=== PATIENT | male | born 1990 | race Caucasian/White ===

== ENCOUNTER 2023-01-05 05:54 | Emergency (ER) | payer OTHER, SELFPAY ==
[2023-01-05 05:55] VITALS: BP 122/87; BP 123/86; PULSE 76; PULSE 81; RESP 16; TEMP 36.7; O2SAT 97; BMI 25.8
[2023-01-05] MEDS: Erythromycin Base 1 OPTH.TUBE 1 APPLIC OPHTHALMIC (06:53)
--- NOTE | 2023-01-05 08:05 | EDS_ITS ---
HPI History of Present Illness Chief Complaint: Eye Problem Narrative Narrative: 32-year-old male presenting with right eye pain. He states he incidentally moved a pineapple plant yesterday and grazed both of his eyes the right more than the left. He states the left eye does not hurt, but when he opens his left eye it makes his right eye hurt. He is unable to to open his right eye due to pain especially in the light. He did not notice any bleeding. Initially he did not have this much pain. He complains that his eye is tearing and his vision is at baseline he believes except for all the tearing PFSH PFSH Home Medications erythromycin 5 mg/gram (0.5 %) eye ointment 1 applic RIGHT EYE DAILY #3.5 grams 01/05/23 [Rx Last Taken Unknown] fluoxetine 20 mg capsule 40 mg PO DAILY 01/05/23 [History Last Taken Unknown] Allergy/AdvReac Type Severity Reaction Status Date / Time No Known Allergies Allergy Verified 01/05/23 05:58 Social History Smoking Status: Current every day smoker tobacco type: cigarettes ROS ROS ED Constitutional Constitutional ED: Denies chills, fever(s) or sweats Eyes Eyes: Reports other Details: Right eye pain ; Denies blurry vision or change in vision ENT ENT ED: Denies ear pain or sore throat Cardiovascular Cardiovascular: Denies chest pain, palpitations or racing heartbeat Respiratory/Chest Respiratory/Chest: Denies cough, dyspnea or sputum Gastrointestinal Gastrointestinal: Denies abdominal pain, constipation, diarrhea, nausea or vomiting Genitourinary Genitourinary ED: Denies dysuria, hematuria or urinary frequency Musculoskeletal Musculoskeletal: Denies arthralgias, myalgias or neck pain Integumentary Denies abscess, Abrasions or rash Neurologic Neurologic: Denies headache(s), paresthesias or weakness Psychiatric Psychiatric: Denies anxiety, depression, suicidal ideation or suicidal thoughts Endocrine Endocrinology: Denies polydipsia or polyuria EXAM Physical Exam Const Vital Signs: 01/05/23 05:55 01/05/23 05:55 Temperature 98.1 F 98.1 F Temperature Source Oral Oral Pulse Rate 76 81 Respiratory Rate 16 16 Blood Pressure 123/86 H 122/87 H Blood Pressure Mean 98 98 Pulse Ox 97 97 Oxygen Delivery Method Room Air Room Air Positive well nourished General Appearance ED: NAD HEENT atraumatic Eyes PERRL Visual Acuity: acuity normal Alignment: alignment normal Periorbital: periorbital findings normal Eyelid: eyelids normal Conjunctiva: conjunctiva normal Sclera: sclera abnormal Positive for right Details: scleral injection Cornea: cornea normal and fluorescein used Neck no lymphadenopathy Resp normal respiratory effort Cardio regular rate and regular rhythm Neuro oriented x3 and CN's II-XII intact bilaterally Skin Lesions: no lesions Rashes: no rashes MDM MDM MDM Narrative Medical decision making narrative: Patient presenting with right eye pain he states it hurts worse when his left eye is open suggesting that he has a traumatic iritis. I had a lot of diffic ulty trying to examine the patient's eye. Patient is having trouble opening it. He did assist him by pulling down his lower eyelid and I pulled up on his upper eyelid however once his eyes open he rolled his eye backwards and I can examine his pupil/cornea. The sclera seems injected. I do not see any obvious scratches and I did use fluorescein and tetracaine. Given this I spoke with Dr. Vasquez who stated that he could see him in 8:00 and to have him call the office and he will be discharged home to go over that way. Impression: 1. Traumatic iritis Discharge Plan Triage Chief Complaint: Eye Problem ED Provider: Tera Webster Dx/Rx/DC Orders Instructions: ED Corneal Abrasion, ED Iritis Prescriptions: New erythromycin 5 mg/gram (0.5 %) ointment 1 applic RIGHT EYE DAILY Qty: 3.5 0RF No Action fluoxetine 20 mg capsule 40 mg PO DAILY Stand Alone Forms: ED Work / School Excuse Primary Care Provider: Care Physician,No Primary Referrals: Yordy Vasquez MD [Med Staff - Active Staff] - As soon as possible Care Physician,No Primary [Primary Care Provider] - Disposition Disposition: Home, Self Care Discharge Date/Time: 01/05/23 07:25
== END 2023-01-05 07:25 | disposition home or self-care (01) ==
PROVIDERS: Emergency Provider Student in an Organized Health Care Education/Training Program; Visit Provider Student in an Organized Health Care Education/Training Program
DX: H57.11 Ocular pain, right eye (principal); F17.210 Nicotine dependence, cigarettes, uncomplicated; H20.9 Unspecified iridocyclitis
CPT/HCPCS: 99282

== ENCOUNTER 2023-11-04 16:45 | Emergency (ER) | payer MEDICAID, SELFPAY ==
[2023-11-04 16:46] VITALS: BP 113/84; PULSE 97; RESP 16; TEMP 36.4; O2SAT 96; BMI 26.7
--- NOTE | 2023-11-04 17:05 | ED.VIS.GI ---
HPI HPI - GI History of Present Illness Chief Complaint: Abd Pain Informant: patient Narrative Narrative: Patient has been having lower abdominal pain for the last month or so. He has not for the most part is started sort of intermittent. It has been associated with nausea and dry heaving, he has not really been vomiting. Normal bowel movements, he states occasionally they are a little loose but it really seems to depend on what he eats for the most part no watery diarrhea, no bright red blood per rectum or melena. No problems urinating. Pain does not radiate into his back sometimes goes up to his epigastrium only. It is nonlateralizing. No history of any surgeries or GI problems in the past, he comes to the ER for this now because he does not have a PCP. [facility] Medical History (Updated 11/04/23 @ 19:[address] Sohan Dan MD) Depression Medical History no medical history no medical history Home Medications ?Medication ?Instructions ?Recorded ?Last Taken ?Type fluoxetine 20 mg capsule 40 mg PO DAILY 01/05/23 Unknown History dicyclomine 10 mg capsule 20 mg (2 x 10 mg) PO Q6H PRN PRN 11/04/23 Unknown Rx abdominal discomfort #20 CAPSULES famotidine 20 mg tablet 20 mg PO BID #28 TABLETS 11/04/23 Unknown Rx ondansetron 8 mg disintegrating 8 mg PO Q8H PRN nausea and 11/04/23 Unknown Rx tablet vomiting #15 tabs Allergy/AdvReac Type Severity Reaction Status Date / Time No Known Allergies Allergy Verified 11/04/23 16:46 Surgical History no surgical history no surgical history Social History Smoking Status: Current every day smoker tobacco type: cigarettes ROS ROS ED Constitutional Constitutional ED: Denies chills or fever(s) Eyes Eyes: Denies change in vision or diplopia ENT ENT ED: Denies rhinorrhea or sore throat Cardiovascular Cardiovascular: Denies chest pain or palpitations Respiratory/Chest Respiratory/Chest: Denies cough or dyspnea Gastrointestinal Gastrointestinal: Reports abdominal pain, nausea and vomiting; Denies diarrhea or melena Genitourinary Genitourinary ED: Denies dysuria or hematuria Musculoskeletal Musculoskeletal: Denies back pain or neck pain Integumentary Denies abscess or rash Neurologic Neurologic: Denies headache(s), paresthesias or weakness Psychiatric Psychiatric: Denies anxiety or suicidal thoughts EXAM Physical Exam Const Vital Signs: 11/04/23 16:46 11/04/23 18:46 Temperature 97.6 F L Temperature Source Temporal Pulse Rate 97 66 Respiratory Rate 16 16 Blood Pressure 113/84 H 115/75 Blood Pressure Mean 93 88 Pulse Ox 96 100 Oxygen Delivery Method Room Air Positive well nourished and well developed General Appearance ED: well developed and NAD HEENT Reports moist mucous membranes normocephalic and atraumatic Eyes PERRL and EOMs intact bilaterally Neck full ROM and supple Resp normal respiratory effort and clear to auscultation bilaterally Cardio regular rate, regular rhythm and no murmurs GI non-distended GI Narrative: Mild diffuse lower abdominal tenderness, with some mild subjective rebound. No upper abdominal tenderness. No distention normal bowel sounds present. Auscultation: normoactive bowel sounds Palpation: soft Back/Spine no CVA tenderness General Back: other FROM Extremity normal to inspection General Extremety ED: Negative for edema, pulses abnormal or tenderness General Extremity: Negative for edema or pulses abnormal Neuro oriented x3, CN's II-XII intact bilaterally and no sensory deficits noted Sensorium / Orientation: awake and alert Motor Exam: strength 5/5 throughout Skin no rashes or lesions noted and no wounds MDM MDM MDM Narrative Medical decision making narrative: Patient having lower abdominal pain not resolving after bowel movements, he has been there for a month, no obvious triggers or modifying factors, labs show leukocytosis but otherwise are normal. Therefore I thought contrasted CT abdomen/pelvis warranted to rule out acute infectious etiology such as diverticulitis. This was obtained I reviewed the images and report which I agree with, it was normal/negative. It did show contracted gallbladder no stones, he is not having pain or tenderness there. For that reason going to send him home on dicyclomine, Zofran, and Pepcid, and give him a PCP referral, the next doctor on the unassigned list Dr. Armendariz, and advised that he follow-up. This may be a functional GI etiology of some sort as I discussed with him. Lab Data Attestation: I reviewed the patient's lab results. Labs: Laboratory Results - last 24 hr 11/04/23 17:04 WBC 16.4 H RBC 4.80 Hgb 14.4 Hct 41.9 MCV 87.3 MCH 30.0 MCHC 34.4 RDW Std Deviation 41.5 RDW Coeff of Lynda 12.9 Plt Count 303 MPV 8.9 Immature Gran % (Auto) 0.300 Neut % (Auto) 72.1 H Lymph % (Auto) 19.2 [place] % (Auto) 4.9 Eos % (Auto) 3.0 Baso % (Auto) 0.5 Absolute Neuts (auto) 11.8 H Absolute Lymphs (auto) 3.15 Nucleated RBC % 0 Sodium 139 Potassium 3.8 Chloride 109 H Carbon Dioxide 26.0 Anion Gap 4 L BUN 11 Creatinine 1.07 Estim Creat Clear Calc 104.58 Est GFR (MDRD) Af Amer 102 Est GFR (MDRD) Non-Af 84 BUN/Creatinine Ratio 10.3 Glucose 116 H Calcium 9.2 Total Bilirubin 0.30 AST 23 ALT 41 Alkaline Phosphatase 88 Total Protein 7.3 Albumin 3.8 Globulin 3.5 Albumin/Globulin Ratio 1.1 Lipase 40 Urine Color Yellow Urine Clarity Clear Urine pH 5.0 Ur Specific [place] 1.025 Urine Protein 30 H Urine Glucose (UA) Normal Urine Ketones 5 H Urine Occult Blood 10 H Urine Nitrite Negative Urine Bilirubin 1 H Urine Urobilinogen Normal Ur Leukocyte Esterase 25 H Urine RBC 0 SEEN Urine WBC 0-5 SEEN Ur Squamous Epith Cells 0-5 SEEN Urine Bacteria 0 SEEN Urine Mucus 1+ Radiography Diagnostic Testing: Clinical Impression(s) from Imaging Studies Abdomen/Pelvis CT 11/04/23 17:41 IMPRESSION: Contracted thick-walled gallbladder without calcified stones likely physiologic although if concern for gallbladder disease ultrasound recommended. No evidence for small bowel obstruction or other acute abnormality. Electronically Signed: Brian Cohn MD at 18:43 EDT , Discharge Plan Triage Chief Complaint: Abd Pain ED Provider: Sohan Dan Dx/Rx/DC Orders Clinical Impression: Lower abdominal pain Instructions: Abdominal Pain Prescriptions: New famotidine 20 mg tablet 20 mg PO BID Qty: 28 0RF dicyclomine 10 mg capsule 20 mg PO Q6H PRN PRN (Reason: abdominal discomfort) Qty: 20 0RF ondansetron 8 mg tablet,disintegrating 8 mg PO Q8H PRN (Reason: nausea and vomiting) Qty: 15 0RF No Action fluoxetine 20 mg capsule 40 mg PO DAILY Primary Care Provider: Care Physician,No Primary Referrals: Tessa Kapoor MD [Med Staff - Imaging Technician] - As soon as possible (call for appt) Care Physician,No Primary [Primary Care Provider] - Print Language: Albanian Disposition Disposition: Home, Self Care
[2023-11-04] MEDS: Ondansetron 4 MG/2 ML Vial IV (17:07)
[2023-11-04] MEDS: Ketorolac 30 MG/ML Syringe IV (17:07)
[2023-11-04 17:10] LABS: Bacteria 0 SEEN /hpf (None Seen); Red Blood Cells-Urine 0 SEEN /hpf (0-5)
[2023-11-04 17:20] LABS: Absolute Lymphocyte Count 3.15 X10^3/uL (0.83-4.51); Absolute Neutrophil Count 11.8 X10^3/uL (2.0-7.7); Basophil# 0.08 X10^3/uL; Basophil% 0.5 % (0-1); Hematocrit 41.9 % (40-54); Hemoglobin 14.4 g/dL (13.0-16.5); Lymphocyte # 3.15 X10^3/ul (0.83-4.51); Lymphocyte % 19.2 % (19-41); Mean Corp Hgb Conc 34.4 g/dL (32-36); Mean Corpuscular Volume 87.3 fL (80-94); Mean Platelet Vol. 8.9 fl (6.2-12.0); Monocyte# 0.81 X10^3/uL; Monocyte% 4.9 % (0-10); NRBC Flagged by Analyzer 0 % (0-5); Neutrophil # 11.84 X10^3/uL (2.7-7.7); Neutrophil % 72.1 % (47-70); Platelet Count 303 K/mm3 (150-450); RBC Distribution Width CV 12.9 % (11.6-14.6); RBC Distribution Width SD 41.5 fl (35.1-43.9); White Blood Count 16.4 K/mm3 (4.4-11.0)
[2023-11-04 17:23] LABS: Color, Urine Yellow (Yellow); Glucose, Dipstick Normal (Normal); Ketone-Dipstick 5 mg/dl (Negative); Leukocyte Esterase-Dipstick 25 /ul (Negative); Nitrite-Dipstick Negative (Negative); Occult Blood-Urine 10 /ul (Negative); Protein-Dipstick 30 mg/dl (Negative); Specific Gravity, Urine 1.025 (1.002-1.030); Urine Clarity Clear (Clear); Urine Urobilinogen Normal (Normal)
[2023-11-04 17:31] LABS: Urine Bilirubin Dipstick 1 mg/dL (Negative)
[2023-11-04 17:33] LABS: Mucous, Urine 1+ /hpf (<or=2+); Squamous Epithelial Cells - UA 0-5 SEEN /hpf (0-5); White Blood Cells 0-5 SEEN /hpf (0-5)
[2023-11-04 17:36] LABS: ALB/GLOB Ratio 1.1 RATIO (0.9-2.4); AST(SGOT) 23 U/L (15-37); Alanine Aminotransfer ALT/SGPT 41 U/L (16-61); Albumin, Serum 3.8 g/dL (3.2-5.0); Alkaline Phosphatase 88 U/L (45-117); Anion Gap 4 (5-15); BUN 11 mg/dL (7-18); BUN/Creat Ratio 10.3 RATIO (10-20); Calcium,Total 9.2 mg/dL (8.5-10.1); Chloride 109 mmol/L (98-107); Creatinine, Serum 1.07 mg/dL (0.70-1.30); EST Glomerular Filtration Rate 84 mL/min (>60); Est Glom Filt Rate - Afr Amer 102 mL/min (>60); Estimated Creatinine Clearance 104.58 ml/min; Globulin 3.5 g/dL (2.2-4.2); Glucose 116 mg/dL (74-106); Lipase 40 U/L (13-75); Potassium 3.8 mmol/L (3.5-5.1); Protein, Total 7.3 g/dL (6.4-8.2); Sodium Level 139 mmol/L (136-145)
--- NOTE | 2023-11-04 17:41 | CT_ITS ---
STUDY: CT ABDOMEN AND PELVIS WITH CONTRAST REASON FOR EXAM: Male, 33 years old. lower abd pain, n/v RADIATION DOSAGE (If Supplied By Facility): CTDIvol = ( 19.24 ) mGy, DLP = ( 1090.94 ) mGycm TECHNIQUE: Transaxial images were obtained from the dome of the diaphragm to the symphysis pubis without oral contrast. IV 100mL Isovue-300 was administered. Sagittal and coronal images were reconstructed. Individualized dose optimization techniques were used for this CT. COMPARISON: None. FINDINGS: Mild atelectasis within the dependent portion of the lower lobes.. The visualized portions of the heart are within normal limits. Normal liver. Contracted thick-walled gallbladder without calcified stones likely physiologic.. Normal spleen. Normal pancreas. Normal bilateral adrenal glands. Normal right kidney. Normal left kidney. Normal visualized stomach. Normal small intestine. Normal colon. No evidence for acute appendicitis. Normal abdominal aorta. Normal inferior vena cava. Normal retroperitoneum. Incompletely distended thick walled bladder likely of no significance. Tiny subcentimeter right inguinal nodes likely benign. Normal osseous structures. CT/Abdomen/Pelvis W IV Cont ONLY IMPRESSION: Contracted thick-walled gallbladder without calcified stones likely physiologic although if concern for gallbladder disease ultrasound recommended. No evidence for small bowel obstruction or other acute abnormality. Electronically Signed: Brian Cohn MD at 18:43 EDT ,
[2023-11-04 18:46] VITALS: BP 115/75; PULSE 66; RESP 16; O2SAT 100
[2023-11-04 19:23] VITALS: BP 106/79; PULSE 70; RESP 18; TEMP 37.2; O2SAT 94
== END 2023-11-04 19:26 | disposition home or self-care (01) ==
PROVIDERS: Emergency Provider Emergency Medicine; Visit Provider Emergency Medicine
DX: R10.30 Lower abdominal pain, unspecified (principal); F17.210 Nicotine dependence, cigarettes, uncomplicated
CPT/HCPCS: 74177; 80053; 81001; 83690; 85025; 96374; 96375; 99283; Q9967; A4216; J2405

== ENCOUNTER 2023-12-29 15:49 | Emergency (ER) | payer MEDICAID, SELFPAY ==
[2023-12-29 15:50] VITALS: BP 104/90; PULSE 95; RESP 16; TEMP 35.7; O2SAT 96; BMI 26.2
--- NOTE | 2023-12-29 21:30 | RAD_ITS ---
INDICATION: wrist pain with redness no injury EXAMINATION/TECHNIQUE: X-RAY - RIGHT XR Wrist Min 3 Views COMPARISON: None. FINDINGS: No acute fracture or malalignment. No blastic or lytic lesions. No degenerative changes are seen. The soft tissues are unremarkable. RAD/Wrist min 3 Views IMPRESSION: No acute radiographic abnormalities. Electronically Signed: Jamin Rea MD at 21:41 EDT ,
[2023-12-29] MEDS: 0.9% Normal Saline (1000mL) 1,000 ML 999 ML IV (21:39)
[2023-12-29 21:43] VITALS: BP 95/76; PULSE 78; RESP 16; TEMP 37.1; O2SAT 96
[2023-12-29 21:54] LABS: Absolute Lymphocyte Count 3.09 X10^3/uL (0.83-4.51); Absolute Neutrophil Count 9.5 X10^3/uL (2.0-7.7); Basophil# 0.08 X10^3/uL; Basophil% 0.6 % (0-1); Eosinophil# 0.35 X10^3/uL; Eosinophils% 2.5 % (0-5); Hematocrit 39.4 % (40-54); Lymphocyte # 3.09 X10^3/ul (0.83-4.51); Lymphocyte % 22.4 % (19-41); Mean Corpuscular Hgb 29.3 pg (27.0-32.0); Mean Corpuscular Volume 88.9 fL (80-94); Monocyte# 0.77 X10^3/uL; Monocyte% 5.6 % (0-10); NRBC Flagged by Analyzer 0 % (0-5); Neutrophil # 9.47 X10^3/uL (2.7-7.7); Neutrophil % 68.5 % (47-70); Platelet Count 272 K/mm3 (150-450); RBC Distribution Width CV 12.8 % (11.6-14.6); RBC Distribution Width SD 41.8 fl (35.1-43.9); Red Blood Count 4.43 M/mm3 (4.6-6.2); White Blood Count 13.8 K/mm3 (4.4-11.0)
--- NOTE | 2023-12-29 21:59 | EDS_ITS ---
HPI History of Present Illness Chief Complaint: Wound Check Narrative Narrative: Patient is a 33-year-old male with no known significant past medical history who [facility] the [facility] with a chief complaint of right wrist pain and swelling and redness. Patient states that yesterday he noted that he developed some pain and redness in his right wrist and noted that his significant other felt like the redness was getting worse and streaking up his arm prompting him to come here for further evaluation management. Patient denies any injuries he states that he does have 2 marked on his wrist but does not recall what those are from. Patient denies any history of drug use, states he does smoke and will use alcohol occasionally. Patient denies any fevers. He states that if he attempts to move his wrist radial or ulnarly the pain does increase significantly. [facility] Medical History (Updated 12/29/23 @ 23:[address] Berhane Sahu DO) Right arm cellulitis Depression Home Medications ?Medication ?Instructions ?Recorded ?Last Taken ?Type fluoxetine 20 mg capsule 40 mg PO QHS 01/05/23 Unknown History cephalexin 500 mg capsule 500 mg PO BID 7 days #14 caps 12/29/23 Unknown Rx sulfamethoxazole 800 1 tab PO BID 7 days #14 tabs 12/29/23 Unknown Rx mg-trimethoprim 160 mg tablet (Bactrim DS) Allergy/AdvReac Type Severity Reaction Status Date / Time Iodinated Contrast Media (CT) Allergy Intermediate Swelling Verified 12/29/23 15:50 Social History Smoking Status: Current every day smoker tobacco type: cigarettes ROS ROS ED ROS Narrative Constitutional: Denies any fevers, chills, headaches, lightness, dizziness Cardiovascular: Denies chest pain or palpitations Respiratory: Denies shortness of breath Abdomen: Denies nausea vomit diarrhea : Denies any urinary symptoms Neurological: Denies numbness, weakness, tingling Musculoskeletal: Complains of right wrist pain as noted above Skin: Complains of redness of his right wrist as noted above EXAM Physical Exam Narrative Exam Narrative: General: Patient was lying in bed rest comfortably did not appear to be in acute distress Head: Atraumatic, normocephalic Eyes: PERRL bilateral, EOMI bilateral, no conjunctival injection noted Neck: Soft, supple, trachea midline Cardiovascular: Regular rate and rhythm no murmurs gallops rubs noted Respiratory: Clear to auscultation bilaterally Musculoskeletal: Patient has some pain with flexion of his wrist however extension does not reproduce the pain. Patient does have pain with ulnar and radial deviation, Extremities: Radial pulses +2/4 in the bilateral upper extremities, +5/5 strength noted in the bilateral per extremities, patient was able to give me okay sign thumbs up and oppose his thumb to his pinky bilaterally thigh difficulty Neurological: Patient following commands knew that he was at [facility] year is 2023. Sensation grossly intact in the median ulnar and radial nerve distributions Skin: Patient does have overlying erythema noted to the volar aspect of his right wrist with streaking up his right arm Const Vital Signs: 12/29/23 15:50 12/29/23 21:43 12/29/23 23:00 Temperature 96.3 F L 98.8 F 98.7 F Temperature Source Temporal Oral Oral Pulse Rate 95 78 97 Respiratory Rate 16 16 18 Blood Pressure 104/90 H 95/76 115/87 H Blood Pressure Mean 94 82 96 Pulse Ox 96 96 95 Oxygen Delivery Method Room Air Room Air Room Air MDM MDM MDM Narrative Medical decision making narrative: Patient is a 33-year-old male who presented to the emergency department with a chief complaint of right wrist pain redness and swelling. Patient will have workup formed here on the differential diagnose includes but not limited to cellulitis, septic joint, musculoskeletal strain. Once workup is obtained reviewed he will be reevaluated. Patient's CBC was significant for leukocytosis of 13,000, hemoglobin stable 13, platelet count normal at 272. Patient sodium normal 139, potassium was 3.4, creatinine was normal at 1.02. Patient's ESR was normal at 8, CRP was elevated 36.8 this is nonspecific likely related elevation secondary to cellulitis. Patient's x-ray of his wrist reviewed showed no acute radiographic abnormalities this was reviewed by myself and by radiology. On reevaluation the patient and the patient's redness is localized to the volar aspect of his right wrist with some redness going up his forearm. Patient does have range of motion of his wrist with some mild pain but he is still able to move his wrist. At this point time to have low to suspicion for septic joint. Called and discussed the case with orthopedic surgeon Dr. saavedra who states that the patient can follow-up with him in the outpatient setting with close follow-up. He was given a gram of Rocephin here in the emergency department was given a prescription for Keflex and Bactrim. He was advised to take this as prescribed. He is advised to have close follow-up and return with worsening swelling pain redness while on oral antibiotics or any other concerns. He is agreeable this plan he would like to go home at this point time will be discharged in stable condition. Lab Data Labs: Laboratory Results - last 24 hr 12/29/23 21:38 WBC 13.8 H RBC 4.43 L Hgb 13.0 Hct 39.4 L MCV 88.9 MCH 29.3 MCHC 33.0 RDW Std Deviation 41.8 RDW Coeff of Lynda 12.8 Plt Count 272 MPV 9.0 Immature Gran % (Auto) 0.400 Neut % (Auto) 68.5 Lymph % (Auto) 22.4 [place] % (Auto) 5.6 Eos % (Auto) 2.5 Baso % (Auto) 0.6 Absolute Neuts (auto) 9.5 H Absolute Lymphs (auto) 3.09 Nucleated RBC % 0 ESR 8 Sodium 139 Potassium 3.4 L Chloride 110 H Carbon Dioxide 27.0 Anion Gap 2 L BUN 15 Creatinine 1.02 Estim Creat Clear Calc 109.71 Est GFR (MDRD) Af Amer 108 Est GFR (MDRD) Non-Af 89 BUN/Creatinine Ratio 14.7 Glucose 98 Lactic Acid 0.6 Calcium 9.1 C-React Prot Ext Range 36.80 H Radiography Diagnostic Testing: Clinical Impression(s) from Imaging Studies Wrist X-Ray 12/29/23 21:30 IMPRESSION: No acute radiographic abnormalities. Electronically Signed: Jamin Rea MD at 21:41 EDT , Discharge Plan Triage Chief Complaint: Wound Check ED Provider: Berhane Sahu Dx/Rx/DC Orders Clinical Impression: Right arm cellulitis Prescriptions: New cephalexin 500 mg capsule 500 mg PO BID 7 Days Qty: 14 0RF sulfamethoxazole-trimethoprim [Bactrim DS] 800-160 mg tablet 1 tab PO BID 7 Days Qty: 14 0RF No Action fluoxetine 20 mg capsule 40 mg PO QHS Primary Care Provider: Care Physician,No Primary Referrals: Care Physician,No Primary [Primary Care Provider] - Jamin Garnt MD [Med Staff - Refrigeration Plant Cork Insulator] - Yordy Saavedra MD [Med Staff - Active Staff] - Activity Restrictions/Additional Instructions: Follow-up with the orthopedic surgeon that you referred to. Take antibiotics as prescribed. Return with worsening pain, redness while on antibiotics, fevers, any other concerns as we discussed here. You will need close follow-up with the orthopedic surgeon call his office tomorrow for an appointment. He referred to primary care physician as well follow-up with them. Print Language: Sudanese Disposition Disposition: Home, Self Care
[2023-12-29 22:02] LABS: Erythrocyte Sedimentation Rate 8 mm/hr (0-20)
[2023-12-29 22:08] LABS: Anion Gap 2 (5-15); BUN 15 mg/dL (7-18); BUN/Creat Ratio 14.7 RATIO (10-20); Calcium,Total 9.1 mg/dL (8.5-10.1); Chloride 110 mmol/L (98-107); Creatinine, Serum 1.02 mg/dL (0.70-1.30); EST Glomerular Filtration Rate 89 mL/min (>60); Est Glom Filt Rate - Afr Amer 108 mL/min (>60); Estimated Creatinine Clearance 109.71 ml/min; Glucose 98 mg/dL (74-106); Potassium 3.4 mmol/L (3.5-5.1); Sodium Level 139 mmol/L (136-145)
[2023-12-29 22:28] LABS: Lactic Acid 0.6 mmol/L (0.4-1.9)
--- NOTE | 2023-12-29 22:55 | CONS.ORTHO ---
HPI Consult Data Date of Consult: 12/29/23 HPI Narrative HPI Narrative: LINDA OKEEFE, is a 33 M who presents for right wrist and forearm redness and pain. Called by the ED provider this evening at around 1050pm. Per his hx, one day of redness and warmth. no iv drug use. no fevers, drainage, trauma or other symptoms. no concern for septic joint, compartment syndrome, or need for urgent assessment. wanting to arrrange outpatient FU after arranging for a dose of IV antibiotics and oral abx to go home with. [facility] Medical History (Updated 12/29/23 @ 22:57 by Yordy Carroll MD) Right arm cellulitis Depression Home Medications ?Medication ?Instructions ?Recorded ?Last Taken ?Type fluoxetine 20 mg capsule 40 mg PO QHS 01/05/23 Unknown History Allergy/AdvReac Type Severity Reaction Status Date / Time Iodinated Contrast Media (CT) Allergy Intermediate Swelling Verified 12/29/23 15:50 Social History Smoking Status: Current every day smoker tobacco type: cigarettes Vital Signs Vital Signs Vital Signs: 12/29/23 15:50 12/29/23 21:43 Temperature 96.3 F L 98.8 F Temperature Source Temporal Oral Pulse Rate 95 78 Respiratory Rate 16 16 Blood Pressure 104/90 H 95/76 Blood Pressure Mean 94 82 Pulse Ox 96 96 Oxygen Delivery Method Room Air Room Air Weight Weight: 188 lb Body Mass Index (BMI) 26.2 Physical Exam Narrative per the ED provider, full Rom of the wrist with only mild pain and NVI, with some mild streaking redness. Lab / Micro Data 12/29/23 21:38 12/29/23 21:38 Labs: Laboratory Results - last 24 hr 12/29/23 21:38: WBC 13.8 H, RBC 4.43 L, Hgb 13.0, Hct 39.4 L, MCV 88.9, MCH 29.3, MCHC 33.0, RDW Std Deviation 41.8, RDW Coeff of Lynda 12.8, Plt Count 272, MPV 9.0, Immature Gran % (Auto) 0.400, Neut % (Auto) 68.5, Lymph % (Auto) 22.4, [place] % (Auto) 5.6, Eos % (Auto) 2.5, Baso % (Auto) 0.6, Absolute Neuts (auto) 9.5 H, Absolute Lymphs (auto) 3.09, Nucleated RBC % 0, ESR 8, Sodium 139, Potassium 3.4 L, Chloride 110 H, Carbon Dioxide 27.0, Anion Gap 2 L, BUN 15, Creatinine 1.02, Estim Creat Clear Calc 109.71, Est GFR (MDRD) Af Amer 108, Est GFR (MDRD) Non-Af 89, BUN/Creatinine Ratio 14.7, Glucose 98, Lactic Acid 0.6, Calcium 9.1, C-React Prot Ext Range 36.80 H Imaging Radiology Impression Wrist X-Ray 12/29/23 21:30 IMPRESSION: No acute radiographic abnormalities. Electronically Signed: Jamin Rea MD at 21:41 EDT , Assessment & Plan Assessment/Plan (1) Right arm cellulitis: PLAN: 33 yr M with stable vitals and early signs of cellulitis with no features necessitating surgical intervention. OK to arrange for outpatient antibiotics and FU early in clinic this week. Patient should be advised by the ED provider to return immediately for any significant change or failure to improve, worsening, pain, etc.
[2023-12-29 23:00] VITALS: BP 115/87; PULSE 97; RESP 18; TEMP 37.1; O2SAT 95
[2023-12-29] MEDS: Ceftriaxone 1 GM/50 ML BAG IV (23:23)
[2023-12-29 23:39] VITALS: BP 125/73; PULSE 74; RESP 18; TEMP 36.9; O2SAT 96
== END 2023-12-29 23:56 | disposition home or self-care (01) ==
PROVIDERS: Emergency Provider Emergency Medicine; Visit Provider Emergency Medicine
DX: L03.113 Cellulitis of right upper limb (principal); F32.A Depression, unspecified; F17.210 Nicotine dependence, cigarettes, uncomplicated; Z79.899 Other long term (current) drug therapy
CPT/HCPCS: 73110; 80048; 83605; 85025; 85652; 86140; 96361; 96365; 99284; J7030; J7050; A4216

== ENCOUNTER 2024-04-15 07:51 | Inpatient (IN) | payer MEDICAID, SELFPAY ==
[2024-04-15] VITALS (13 sets, daily range): BP systolic 77–120; BP diastolic 42–72; PULSE 98–123; RESP 15–24; TEMP 36.9–39.3; O2SAT 89–97; BMI 27.6; BMI 27.7
--- NOTE | 2024-04-15 08:04 | EX.ED.DYSGE1 ---
HPI History of Present Illness Chief Complaint: Fever Informant: patient and spouse/S.O. Onset/Context/Timing Onset: Days Context: Gradual Onset Timing: Continuous Current Severity: Mild Maximum Severity: Mild Narrative Narrative: 33-year-old male history of depression. States that a fever for 4 to 5 days. Symptoms began Thursday night. He and his said the whole house has been ill but they have all gotten over it and he just does not seem to be able to shake the fever. He had loose stools on Thursday is since resolved. No dysuria. No abdominal pain. Mild nausea. No vomiting. No rash. No earache or sore throat. No significant cough. He does feel dehydrated. But has been able to drink and hold down fluids. He took Advil at 6 AM this morning. Prior similar symptoms: No Recent Illness/Hospitalization: No PFSH PFSH Medical History Right arm cellulitis Depression Home Medications ?Medication ?Instructions ?Recorded ?Last Taken ?Type fluoxetine 20 mg capsule 40 mg PO QHS 01/05/23 Unknown History Allergy/AdvReac Type Severity Reaction Status Date / Time Iodinated Contrast Media (CT) Allergy Intermediate Swelling Verified 04/15/24 07:52 Social History Smoking Status: Current every day smoker tobacco type: cigarettes ROS ROS ED ROS Narrative Fever. Nausea. Diarrhea resolved. Constitutional Constitutional ED: Reports fever(s) ENT ENT ED: Denies ear pain, rhinorrhea or sore throat Cardiovascular Cardiovascular: Denies chest pain Respiratory/Chest Respiratory/Chest: Denies cough or dyspnea Gastrointestinal Gastrointestinal: Reports diarrhea and nausea; Denies abdominal pain, constipation, melena or vomiting Genitourinary Genitourinary ED: Denies dysuria Musculoskeletal Musculoskeletal: Denies arthralgias Integumentary Denies abscess Neurologic Neurologic: Denies headache(s) Psychiatric Psychiatric: Denies anxiety Endocrine Endocrinology: Denies cold intolerance Hematologic/Lymphatic Hematologic/Lymphatic: Reports none Allergic/Immunologic Allergic/Immunologic ED: Denies mouth swelling, tongue swelling or urticaria EXAM Physical Exam Narrative Exam Narrative: 33-year-old male vital signs show low-grade temperature nine 9.7. Pulse 123 and hypotensive at 96/62. Pulse ox 97%. Clinically looks well. He sitting upright in bed. He does not look septic or toxic. He looks mildly dehydrated. H EENT exam pupils round react light. Mildly dry mucous membranes. Posterior pharynx unremarkable. Neck nontender. No lymphadenopathy. Neck is nontender. No lymphadenopathy. Trachea midline. No meningismus. Able to touch chin to chest. Back nontender no rash. Lungs clear to auscultation bilaterally. Heart tachycardic rate about 120 no murmur. Chest wall and ribs nontender. No rash. Abdomen soft nontender. No rash. Moving all 4 extremities. Nontender. No edema. No rashes. No hot or swollen joints. Normal range of motion. Normal strength. Neurologically is awake and alert. No focal motor deficits. Answering questions and following commands. Const Vital Signs: 04/15/24 07:52 04/15/24 07:52 04/15/24 08:08 Temperature 99.7 F H 99.8 F H 102.2 F H Temperature Source Oral Temporal Oral Pulse Rate 123 H Respiratory Rate 20 H Respiratory Effort Respiratory Pattern Blood Pressure 96/62 Blood Pressure Mean 73 Pulse Ox 97 Oxygen Delivery Method Room Air 04/15/24 08:25 04/15/24 10:26 04/15/24 10:34 Temperature 98.5 F Temperature Source Oral Pulse Rate 108 H 108 H Respiratory Rate 19 H 20 H Respiratory Effort Normal Non-Labored Respiratory Pattern Normal Blood Pressure 77/42 L 84/47 L Blood Pressure Mean 53 59 Pulse Ox 92 93 Oxygen Delivery Method Room Air Room Air 04/15/24 10:51 04/15/24 12:06 04/15/24 13:27 Temperature 98.9 F Temperature Source Pulse Rate 101 H 98 98 Respiratory Rate 16 15 16 Respiratory Effort Respiratory Pattern Blood Pressure 99/62 96/72 92/54 L Blood Pressure Mean 74 80 66 Pulse Ox 90 96 95 Oxygen Delivery Method Room Air Room Air Positive well nourished and well developed; Negative for obese, cachectic, contractures or unkempt General Appearance ED: well developed and NAD; Negative for unkempt, cachectic, contractures, cyanotic, diaphoretic or pallor Nutritional Appearance: Negative for cachectic or obese HEENT Reports TM's clear and dry mucous membranes; Denies moist mucous membranes Negative for trauma or tenderness Tympanic Membrane ED: Yes TM's clear Mouth ED: Yes dry mucous membranes Mouth: dry mucous membranes Eyes PERRL and EOMs intact bilaterally General Eye ED: Negative for pale conjunctiva or scleral icterus Neck no lymphadenopathy, supple and no JVD General: Negative for tenderness Lymph Lymphatic: Negative for other Chest Wall inspection of chest normal and palpation of chest normal Resp normal respiratory effort and clear to auscultation bilaterally Effort and Inspection: Negative for retractions Auscultation: Negative for rales, rhonchi, wheezes or diminished lung sounds Cardio regular rhythm, S1 normal heart sound and S2 normal heart sound; Negative for regular rate Rate: tachycardic Rhythm: Negative for abnormal rhythm GI normal to inspection, nondistended, normoactive bowel sounds, non-tender, non-distended and no masses Inspection: Negative for abdominal distention Auscultation: normoactive bowel sounds Palpation: soft; Negative for tender or guarding Back/Spine no CVA tenderness General Back: Negative for CVA tenderness Cervical Spine: Negative for cervical spine tenderness Thoracic Spine / Upper Back: Negative for thoracic spinal tenderness or paraspinal muscle tenderness Lumbar Spine / Lower Back: Negative for lumbar spinal tenderness Extremity normal to inspection General Extremety ED: Negative for edema or tenderness General Extremity: Negative for edema Neuro oriented x3 and CN's II-XII intact bilaterally Sensorium / Orientation: alert; Negative for orientation impaired, lethargic or stuporous Motor Exam: strength 5/5 throughout; Negative for general weakness or strength abnormal Psych mental status grossly normal Appearance: Negative for unkempt Attitude: No agitated Mood & Affect: Negative for depressed, anxious or tearful Skin no rashes or lesions noted and no wounds General Skin Exam: Negative for jaundice or pallor Lesions: No lesion noted Rashes: No rashes noted Trauma: Negative for abrasion Wounds: Negative for wounds noted MDM MDM MDM Narrative Medical decision making narrative: 33-year-old male with fever clinically appears dehydrated and mildly hypotensive. We treated with IV fluids. He already took Advil about 2 hours ago. Screening labs will be obtained looking for different infections. Viral versus bacterial. On exam he has no obvious signs of any bacterial infection. Repeat exam at 10:58 AM patient doing well. His pressure is about 98/56. He has a second liter bag hanging the nurse to go check the IV because it does not seem to be running. The first liter went in quickly. I went over labs of both he and family. We are going get a CAT scan of his chest to rule out pneumonia the chest x-ray I do not make much of the radiologist thinks there may be patchy infiltrates consistent with pneumonia. Repeat exam at 1:08 PM. Patient's blood pressure is holding in the 90s. His tachycardia has resolved. He received IV fluids. The CAT scan does show signs of pneumonia so he has both influenza and a pneumonia. He will be treated with additional IV fluids, Rocephin and Zithromax for the pneumonia. At the hospitalist on page. I am ordering blood cultures prior to the antibiotics. History & Record Review Discussion w/independent historian: Patient Additional record(s) reviewed:: Prior inpatient record, Prior outpatient record, Prior ED visit and Prior labs Lab Data Attestation: I reviewed the patient's lab results. Lab results narrative: CBC shows a white count of 7.9. H&H 13 and 38. Platelets 198. Electrolytes show sodium 137 gap 6. Normal BUN of 10 creatinine of 1. Glucose 102. Lactic acid slightly elevated 2.2. Liver enzymes are normal. UA is negative. Chest x-ray possible pneumonia. Labs: Laboratory Results - last 24 hr 04/15/24 04/15/24 04/15/24 08:15 08:36 10:05 WBC 7.9 RBC 4.39 L Hgb 13.0 Hct 38.5 L MCV 87.7 MCH 29.6 MCHC 33.8 RDW Std Deviation 42.1 RDW Coeff of Lynda 13.1 Plt Count 198 MPV 8.8 Immature Gran % (Auto) 0.500 Neut % (Auto) 81.7 H Lymph % (Auto) 8.4 L [place] % (Auto) 7.0 Eos % (Auto) 2.0 Baso % (Auto) 0.4 Absolute Neuts (auto) 6.4 Absolute Lymphs (auto) 0.66 L Nucleated RBC % 0 Sodium 137 Potassium 3.7 Chloride 105 Carbon Dioxide 26.0 Anion Gap 6 BUN 10 Creatinine 1.07 Estim Creat Clear Calc 104.58 Est GFR (MDRD) Af Amer 102 Est GFR (MDRD) Non-Af 84 BUN/Creatinine Ratio 9.3 L Glucose 102 Lactic Acid 2.2 H* Calcium 8.6 Total Bilirubin 0.20 AST 39 H ALT 45 Alkaline Phosphatase 82 Total Protein 6.5 Albumin 3.4 Globulin 3.1 Albumin/Globulin Ratio 1.1 Urine Color Yellow Urine Clarity Clear Urine pH 8.0 Ur Specific [place] 1.010 Urine Protein 15 H Urine Glucose (UA) Normal Urine Ketones Negative Urine Occult Blood Negative Urine Nitrite Negative Urine Bilirubin Negative Urine Urobilinogen Normal Ur Leukocyte Esterase 25 H Urine RBC 0-5 SEEN Urine WBC 0-5 SEEN Ur Squamous Epith Cells 0 SEEN Urine Bacteria 0 SEEN Urine Mucus 0 SEEN 04/15/24 12:50 WBC RBC Hgb Hct MCV MCH MCHC RDW Std Deviation RDW Coeff of Lynda Plt Count MPV Immature Gran % (Auto) Neut % (Auto) Lymph % (Auto) [place] % (Auto) Eos % (Auto) Baso % (Auto) Absolute Neuts (auto) Absolute Lymphs (auto) Nucleated RBC % Sodium Potassium Chloride Carbon Dioxide Anion Gap BUN Creatinine Estim Creat Clear Calc Est GFR (MDRD) Af Amer Est GFR (MDRD) Non-Af BUN/Creatinine Ratio Glucose Lactic Acid 1.5 Calcium Total Bilirubin AST ALT Alkaline Phosphatase Total Protein Albumin Globulin Albumin/Globulin Ratio Urine Color Urine Clarity Urine pH Ur Specific [place] Urine Protein Urine Glucose (UA) Urine Ketones Urine Occult Blood Urine Nitrite Urine Bilirubin Urine Urobilinogen Ur Leukocyte Esterase Urine RBC Urine WBC Ur Squamous Epith Cells Urine Bacteria Urine Mucus Radiography Chest X-Ray - ED: 2 View, Read by ED Physician, Read by Radiologist, Heart, Lungs, Mediastinum, Bony Structures, No Acute Disease and Chronic Changes Diagnostic Testing: Clinical Impression(s) from Imaging Studies Chest X-Ray 04/15/24 08:20 IMPRESSION: Findings suggestive of patchy bibasilar infiltrates. Electronically Signed: Roshan Portillo MD at 8:43 EST , Chest CT 04/15/24 11:20 IMPRESSION: Patchy bibasilar infiltrates worse on the left side. Electronically Signed: Roshan Portillo MD at 12:14 EST , Chest x-ray, 2 views, AP and lateral interpreted by myself and the radiologist. Normal cardiac silhouette and questionable patchy infiltrates. COVID and RSV negative. Influenza A positive. Discharge Plan Dx/Rx/DC Orders Clinical Impression: Influenza A, Pneumonia, Acute hypotension, Acute dehydration Disposition Disposition: Acute Care Hospital [facility]
--- NOTE | 2024-04-15 08:20 | RAD_ITS ---
STUDY: X-RAY CHEST REASON FOR EXAM: Male, 33 years old. Fever. Body aches. TECHNIQUE: PA and lateral views of the chest. COMPARISON: None. FINDINGS: Increased markings are seen in both lung bases suggestive of patchy bibasilar infiltrates. There is no demonstrated pleural abnormality. Normal size heart. Normal mediastinum and mandie. Normal visualized pulmonary arteries. Normal visualized aortic arch and descending thoracic aorta. Normal visualized thoracic spine. Normal visualized ribs, clavicles, and shoulders. There is no demonstrated abnormality of the visualized soft tissue structures of the upper abdomen. RAD/Chest PA and Lateral IMPRESSION: Findings suggestive of patchy bibasilar infiltrates. Electronically Signed: Roshan Portillo MD at 8:43 EST ,
[2024-04-15 08:28] LABS: Absolute Lymphocyte Count 0.66 X10^3/uL (0.83-4.51); Absolute Neutrophil Count 6.4 X10^3/uL (2.0-7.7); Basophil# 0.03 X10^3/uL; Basophil% 0.4 % (0-1); Eosinophil# 0.16 X10^3/uL; Hematocrit 38.5 % (40-54); Lymphocyte # 0.66 X10^3/ul (0.83-4.51); Lymphocyte % 8.4 % (19-41); Mean Corp Hgb Conc 33.8 g/dL (32-36); Mean Corpuscular Hgb 29.6 pg (27.0-32.0); Mean Corpuscular Volume 87.7 fL (80-94); Mean Platelet Vol. 8.8 fl (6.2-12.0); Monocyte# 0.55 X10^3/uL; NRBC Flagged by Analyzer 0 % (0-5); Neutrophil # 6.44 X10^3/uL (2.7-7.7); Neutrophil % 81.7 % (47-70); Platelet Count 198 K/mm3 (150-450); RBC Distribution Width CV 13.1 % (11.6-14.6); RBC Distribution Width SD 42.1 fl (35.1-43.9); Red Blood Count 4.39 M/mm3 (4.6-6.2); White Blood Count 7.9 K/mm3 (4.4-11.0)
[2024-04-15] MEDS: 0.9% Normal Saline (1000mL) 1,000 ML 1000 ML IV (08:35)
[2024-04-15 08:42] LABS: ALB/GLOB Ratio 1.1 RATIO (0.9-2.4); AST(SGOT) 39 U/L (15-37); Alanine Aminotransfer ALT/SGPT 45 U/L (16-61); Albumin, Serum 3.4 g/dL (3.2-5.0); Alkaline Phosphatase 82 U/L (45-117); Anion Gap 6 (5-15); BUN 10 mg/dL (7-18); BUN/Creat Ratio 9.3 RATIO (10-20); Calcium,Total 8.6 mg/dL (8.5-10.1); Chloride 105 mmol/L (98-107); Creatinine, Serum 1.07 mg/dL (0.70-1.30); EST Glomerular Filtration Rate 84 mL/min (>60); Est Glom Filt Rate - Afr Amer 102 mL/min (>60); Estimated Creatinine Clearance 104.58 ml/min; Globulin 3.1 g/dL (2.2-4.2); Glucose 102 mg/dL (74-106); Potassium 3.7 mmol/L (3.5-5.1); Protein, Total 6.5 g/dL (6.4-8.2); Sodium Level 137 mmol/L (136-145)
[2024-04-15] MEDS: Acetaminophen 500 MG Tablet 1000 MG PO (08:57)
[2024-04-15 09:10] LABS: Lactic Acid 2.2 mmol/L (0.4-1.9)
[2024-04-15 10:13] LABS: Bacteria 0 SEEN /hpf (None Seen); Mucous, Urine 0 SEEN /hpf (<or=2+); Squamous Epithelial Cells - UA 0 SEEN /hpf (0-5)
[2024-04-15 10:17] LABS: Color, Urine Yellow (Yellow); Glucose, Dipstick Normal (Normal); Ketone-Dipstick Negative (Negative); Leukocyte Esterase-Dipstick 25 /ul (Negative); Nitrite-Dipstick Negative (Negative); Occult Blood-Urine Negative /ul (Negative); Protein-Dipstick 15 mg/dl (Negative); Urine Bilirubin Dipstick Negative (Negative); Urine Clarity Clear (Clear); Urine Urobilinogen Normal (Normal)
[2024-04-15] MEDS: 0.9% Normal Saline (1000mL) 1,000 ML 999 ML IV (10:33)
[2024-04-15 10:40] LABS: Red Blood Cells-Urine 0-5 SEEN /hpf (0-5); White Blood Cells 0-5 SEEN /hpf (0-5)
--- NOTE | 2024-04-15 11:20 | CT_ITS ---
STUDY: CT CHEST WITHOUT CONTRAST REASON FOR EXAM: Male, 33 years old. ?? Pneumonia RADIATION DOSAGE (If Supplied By Facility): CTDIvol = ( 15.06 ) mGy, DLP = ( 493.06 ) mGycm TECHNIQUE: Transaxial imaging was performed without the administration of intravenous contrast material. Individualized dose optimization techniques were used for this CT. COMPARISON: Comparison is made with prior chest radiograph done earlier today. FINDINGS: CHEST Patchy bibasilar infiltrates slightly worse on the left side. There is no demonstrated pleural abnormality. Normal heart and pericardium. There are small small lymph nodes within the mediastinum, which are normal in size and morphology most compatible with reactive lymph hyperplasia. Normal hilar regions. Normal unenhanced pulmonary arteries. Normal aorta arch and descending thoracic aorta. Normal osseous structures. There is no demonstrated abnormality of the visualized upper abdomen. CT/Chest without Contrast IMPRESSION: Patchy bibasilar infiltrates worse on the left side. Electronically Signed: Roshan Portillo MD at 12:14 EST ,
[2024-04-15 12:38] LABS: Reflex Lactate? Y
[2024-04-15 13:19] LABS: Lactic Acid 1.5 mmol/L (0.4-1.9)
[2024-04-15] MEDS: Ceftriaxone 1 GM/50 ML BAG IV (13:25)
--- NOTE | 2024-04-15 13:42 | HP.PCM.HOS_ITS ---
HPI - General General Date of Admission: 04/15/24 Date of Service: 04/15/24 Chief Complaint: Fatigue, fever HPI Narrative LINDA OKEEFE, is a 33 M who presented to the emergency department at [facility] [place] on 04/15/2024 with a chief complaint of fever. Patient stated his symptoms started on Thursday full-blown and he started to feel poorly on Thursday night. Patient reports that everybody in his household has been ill but they have all gotten over it and he has not been able to shake his fever. Evidently he had some loose stools but not diarrhea on Thursday but this is since resolved. He has had decreased p.o. intake including fluids and food. The patient does admit to feeling dehydrated. He reports that he has had cough of sputum production. He took Advil at 6 PM this morning prior to coming into the emergency department. At this point, he is having some bodyaches, sputum production with unknown sputum color, malaise and generalized fatigue with ongoing fevers. Vital signs on presentation showed a temperature of 98.7 with Tmax of 102.2, heart rate 123, respiratory rate 20, blood pressure was 96/62 pulse ox was 97% on room air. CBC was unremarkable but he does have a left shift with an 81.7% neutrophilia. Chemistry panel was unremarkable. Lactic acid was initially elevated at 2.2 with repeat in the emergency department at 1.5 after fluids. AST is mildly elevated at 39. Liver functions are otherwise normal. UA is not consistent with infection. Chest x-ray showed bibasilar infiltrates and a CT of the chest was done for confirmation and does show bibasilar infiltrates. He was treated for pneumonia in the emergency department with ceftriaxone azithromycin and given his ongoing fever and tachycardia with soft blood pressures observation admission was requested. FOR[facility]LY [facility], [facility] Medical History Tobacco abuse Depression Home Medications ?Medication ?Instructions ?Recorded ?Last Taken ?Type fluoxetine 20 mg capsule 40 mg PO QHS 01/05/23 Unknown History Allergy/AdvReac Type Severity Reaction Status Date / Time Iodinated Contrast Media (CT) Allergy Intermediate Swelling Verified 04/15/24 07:52 no significant family history no surgical history Social History (Updated 04/15/24 @ 13:[address] Caitlin Villanueva DO) household members: family housing: house Smoking Status: Current every day smoker tobacco type: cigarettes alcohol intake: current alcohol intake frequency: holidays/special occasions only substance use type: does not use ROS Constitutional Constitutional: Reports anorexia, chills, fatigue, fever(s), malaise and weakness; Denies change in weight, night sweats or other Eyes Eyes: Denies blurry vision, change in eye color, change in vision, discharge from eye(s), double vision, erythema, eye pain, loss of vision or other ENT HEENT: Reports headache(s); Denies abnormal hearing, dysphagia, ear pain, epistaxis, hearing loss, nasal congestion, nasal discharge, post nasal drip, sinus pressure, sore throat or other Cardiovascular Cardiovascular: Denies chest pain, claudication, dyspnea on exertion, edema, lightheadedness, orthopnea, palpitations, paroxysmal nocturnal dyspnea, rapid heart rate, syncope or other Respiratory/Chest Respiratory/Chest: Reports cough and productive cough; Denies dyspnea, excessive phlegm production, hemoptysis, shortness of breath at rest, shortness of breath with exertion, wheezing or other Gastrointestinal Gastrointestinal: Denies abdominal pain, coffee ground emesis, constipation, diarrhea, dyspepsia, hematemesis, hematochezia, loose stools, melena, nausea, vomiting or other Genitourinary Genitourinary: Denies burning urination, difficulty urinating, dysuria, hematuria, nocturia, urinary frequency, urinary hesitancy, urinary incontinence, urinary urgency or other Musculoskeletal Musculoskeletal: Reports myalgias; Denies arthralgias, back pain, joint pain, joint stiffness, joint swelling, neck pain or other Neurologic Neurologic: Denies abnormal gait, abnormal speech, confusion, disequilibrium, dizziness, focal weakness, headache(s), numbness, paresthesias, seizure-like activity, seizures, syncope, tingling, tremor(s) or other Psychiatric Psychiatric: Reports depression; Denies anxiety, homicidal ideation, suicidal ideation or other Endocrine Endocrinology: Denies change in body appearance, cold intolerance, excessive sweating, heat intolerance, polydipsia, polyuria or other Hematologic/Lymphatic Hematologic/Lymphatic: Denies anemia, easy bleeding, easy bruising, lymphadenopathy or other Allergic/Immunologic Allergic/Immunologic: Denies rhinitis, hives, eczemia, asthma or other Vital Signs Vital Signs Vital Signs: 04/15/24 07:52 04/15/24 07:52 04/15/24 08:08 Temperature 99.7 F H 99.8 F H 102.2 F H Temperature Source Oral Temporal Oral Pulse Rate 123 H Respiratory Rate 20 H Respiratory Effort Respiratory Pattern Blood Pressure 96/62 Blood Pressure Mean 73 Pulse Ox 97 Oxygen Delivery Method Room Air 04/15/24 08:25 04/15/24 10:26 04/15/24 10:34 Temperature 98.5 F Temperature Source Oral Pulse Rate 108 H 108 H Respiratory Rate 19 H 20 H Respiratory Effort Normal Non-Labored Respiratory Pattern Normal Blood Pressure 77/42 L 84/47 L Blood Pressure Mean 53 59 Pulse Ox 92 93 Oxygen Delivery Method Room Air Room Air 04/15/24 10:51 04/15/24 12:06 04/15/24 13:27 Temperature 98.9 F Temperature Source Pulse Rate 101 H 98 98 Respiratory Rate 16 15 16 Respiratory Effort Respiratory Pattern Blood Pressure 99/62 96/72 92/54 L Blood Pressure Mean 74 80 66 Pulse Ox 90 96 95 Oxygen Delivery Method Room Air Room Air Weight Weight: 89.9 kg Body Mass Index (BMI) 27.6 Physical Exam Const alert, oriented x3, no apparent distress and well nourished Constitutional Narrative: Ill but nontoxic-appearing middle-aged, white male, lying in bed with covers over his head, appears as if he is not feeling well, pleasant General Appearance: cooperative HEENT normocephalic, head/scalp atraumatic and moist oral mucous membranes HEENT Narrative: Mallampati 3, dentition is good, no thrush Resp normal respiratory effort, no retractions and no use of accessory muscles Resp Narrative: Few crackles at bases bilaterally Auscultation: crackles; Negative for rhonchi or wheezes Cardio regular rhythm, S1 normal heart sound, S2 normal heart sound, no murmurs, no rub, no gallops and no clicks Cardio Narrative: Mild tachycardia GI normal to inspection, nondistended, normoactive bowel sounds, soft to palpation and non-tender Extremity no clubbing, cyanosis or edema Extremity Narrative: Pedal and radial pulses are 2+ Neuro oriented x3, moves all extremities and no focal motor deficits Speech: speech normal Psych Psych Narrative: Affect is flat but appropriate for current condition, patient communicates appropriately and answers all questions Results Lab / Micro Data 04/15/24 08:15 04/15/24 08:15 Labs: Laboratory Results - last 24 hr 04/15/24 08:15: WBC 7.9, RBC 4.39 L, Hgb 13.0, Hct 38.5 L, MCV 87.7, MCH 29.6, MCHC 33.8, RDW Std Deviation 42.1, RDW Coeff of Lynda 13.1, Plt Count 198, MPV 8.8, Immature Gran % (Auto) 0.500, Neut % (Auto) 81.7 H, Lymph % (Auto) 8.4 L, [place] % (Auto) 7.0, Eos % (Auto) 2.0, Baso % (Auto) 0.4, Absolute Neuts (auto) 6.4, Absolute Lymphs (auto) 0.66 L, Nucleated RBC % 0, Sodium 137, Potassium 3.7, Chloride 105, Carbon Dioxide 26.0, Anion Gap 6, BUN 10, Creatinine 1.07, Estim Creat Clear Calc 104.58, Est GFR (MDRD) Af Amer 102, Est GFR (MDRD) Non-Af 84, BUN/Creatinine Ratio 9.3 L, Glucose 102, Calcium 8.6, Total Bilirubin 0.20, AST 39 H, ALT 45, Alkaline Phosphatase 82, Total Protein 6.5, Albumin 3.4, Globulin 3.1, Albumin/Globulin Ratio 1.1 04/15/24 08:36: Lactic Acid 2.2 H* 04/15/24 10:05: Urine Color Yellow, Urine Clarity Clear, Urine pH 8.0, Ur Specific [place] 1.010, Urine Protein 15 H, Urine Glucose (UA) Normal, Urine Ketones Negative, Urine Occult Blood Negative, Urine Nitrite Negative, Urine Bilirubin Negative, Urine Urobilinogen Normal, Ur Leukocyte Esterase 25 H, Urine RBC 0-5 SEEN, Urine WBC 0-5 SEEN, Ur Squamous Epith Cells 0 SEEN, Urine Bacteria 0 SEEN, Urine Mucus 0 SEEN 04/15/24 12:50: Lactic Acid 1.5 Micro: Microbiology 04/15/24 08:15 Mucosa - Nose SARS-CoV-2, Influenza & RSV (PCR) - Final Influenzae A Imaging Radiology Impression Chest X-Ray 04/15/24 08:20 IMPRESSION: Findings suggestive of patchy bibasilar infiltrates. Electronically Signed: Roshan Portillo MD at 8:43 EST , Chest CT 04/15/24 11:20 IMPRESSION: Patchy bibasilar infiltrates worse on the left side. Electronically Signed: Roshan Portillo MD at 12:14 EST , Assessment & Plan Assessment/Plan (1) Acute hypotension: (2) Acute dehydration: (3) Pneumonia: (4) Influenza A: (5) Lactic acidosis: PLAN: Plan Influenza A with superimposed bacterial pneumonia -Chest x-ray was suggestive of pneumonia and CT confirmed bibasilar pneumonia with infiltrates noted -Check sputum culture -Check strep pneumo and Legionella antigens -Continue antibiotics but will utilize Levaquin for easy transition to orals at discharge--> day 1 of 7 for antibiotics today -DuoNebs as scheduled next-as needed albuterol -Mucinex 1200 p.o. twice daily -Patient is out of the window for Tamiflu as he has had symptoms now for 4 days -As needed acetaminophen and ibuprofen Lactic acid -Secondary to dehydration and the above -Resolved with IV fluids on recheck in the emergency department Hypotension/tachycardia secondary to dehydration -Is improving with hydration -Will continue IV fluids at 150 cc/h for 2 more liters -Monitor clinically Depression -Continue home paroxetine Tobacco abuse -Recommend cessation -Nicotine gum available next-patient denied need for patch DVT prophylaxis -Lovenox 40 daily CODE STATUS -Full code Charges/Coding Visit Charges Inpatient E&M: 27215 Init Hosp L2
[2024-04-15] MEDS: Azithromycin 500 MG in 0.9% Normal Saline (250mL Bag) 250 ML 255 MG IV (14:03)
[2024-04-15] MEDS: 0.9% Normal Saline (1000mL) 1,000 ML 150 ML IV ×2 (16:25→21:46)
[2024-04-15] MEDS: Ipratropium/Albuterol Sulfate 3 ML AMPUL.NEB INHALATION ×2 (19:35→23:27)
[2024-04-15] MEDS: Fluoxetine HCl 40 MG CAPSULE PO (21:46)
[2024-04-15] MEDS: Ibuprofen 400 MG Tablet PO (21:46)
[2024-04-15] MEDS: guaiFENesin 1,200 MG Tablet 1200 MG PO (21:47)
[2024-04-15] MEDS: Acetaminophen 325 MG Tablet 650 MG PO (21:47)
[2024-04-15] MEDS: Nicotine Polacrilex 2 MG GUM PO (21:47)
[2024-04-16] VITALS (13 sets, daily range): BP systolic 95–107; BP diastolic 60–72; PULSE 72–108; RESP 16–20; TEMP 36.4–37.7; O2SAT 91–100
[2024-04-16] MEDS: Ipratropium/Albuterol Sulfate 3 ML AMPUL.NEB INHALATION ×5 (03:09→22:43)
[2024-04-16 06:00] LABS: Absolute Lymphocyte Count 1.79 X10^3/uL (0.83-4.51); Absolute Neutrophil Count 4.5 X10^3/uL (2.0-7.7); Basophil# 0.03 X10^3/uL; Basophil% 0.4 % (0-1); Eosinophil# 0.01 X10^3/uL; Eosinophils% 0.1 % (0-5); Hematocrit 37.6 % (40-54); Hemoglobin 12.5 g/dL (13.0-16.5); Lymphocyte # 1.79 X10^3/ul (0.83-4.51); Lymphocyte % 25.8 % (19-41); Mean Corp Hgb Conc 33.2 g/dL (32-36); Mean Corpuscular Hgb 29.1 pg (27.0-32.0); Mean Corpuscular Volume 87.4 fL (80-94); Mean Platelet Vol. 9.1 fl (6.2-12.0); Monocyte# 0.59 X10^3/uL; Monocyte% 8.5 % (0-10); NRBC Flagged by Analyzer 0 % (0-5); Neutrophil % 65.1 % (47-70); Platelet Count 179 K/mm3 (150-450); RBC Distribution Width CV 13.4 % (11.6-14.6); RBC Distribution Width SD 42.9 fl (35.1-43.9); White Blood Count 6.9 K/mm3 (4.4-11.0)
[2024-04-16 06:32] LABS: Anion Gap 6 (5-15); BUN 8 mg/dL (7-18); BUN/Creat Ratio 10.2 RATIO (10-20); Chloride 112 mmol/L (98-107); Creatinine, Serum 0.78 mg/dL (0.70-1.30); EST Glomerular Filtration Rate 121 mL/min (>60); Est Glom Filt Rate - Afr Amer 146 mL/min (>60); Estimated Creatinine Clearance 143.47 ml/min; Glucose 115 mg/dL (74-106); Magnesium 2.2 mg/dL (1.6-2.6); Phosphorus 3.2 mg/dL (2.5-4.9); Potassium 3.3 mmol/L (3.5-5.1); Sodium Level 141 mmol/L (136-145)
[2024-04-16] MEDS: Albuterol 2.5 MG/3 ML VIAL.NEB. INHALATION (07:41)
[2024-04-16] MEDS: Acetaminophen 325 MG Tablet 650 MG PO (09:30)
[2024-04-16] MEDS: Enoxaparin 40 MG/0.4 ML Syringe SC (09:31)
[2024-04-16] MEDS: Potassium Chloride Oral Tablet 20 MEQ 40 MEQ PO ×2 (09:31→12:27)
[2024-04-16] MEDS: levoFLOXacin IV 750 MG/150 ML BAG 100 MG IV (09:31)
[2024-04-16] MEDS: guaiFENesin/D-Methorphan TAB.SR.12H 2 TABLET PO ×2 (09:31→21:56)
[2024-04-16] MEDS: 0.9% Saline Lock 10 ML Syringe IV (09:32)
--- NOTE | 2024-04-16 11:43 | DCINST_ITS ---
Discharge Instructions Diet Discharge Diet: No restrictions DC O2, CPAP, BIPAP needs RN Home O2 Qualification: Home O2 Qualification: Is the patient on home oxygen No 04/16/24 14:29 Home O2 Qualification: AT REST 1- Pulse Ox at rest 98 04/16/24 14:29 Home O2 Qualification: WITH AMBULATION 1- Pulse Ox with ambulation 94 04/16/24 14:29 1- Oxygen Flow Rate with 0 04/16/24 14:29 ambulation Home O2 Discharge instructions: No Dressing / Incision Discharge Activity: Return to Normal Activity Weight Bearing Status: Weight bearing as tolerated Dressing / Incision Call your doctor if you observe: Fever of 101 or Higher, Coldness, Increased Pain, Numbness or Tingling, Change in Color, Inability to urinate, Inability to have a bowel movement, Shortness of breath, Dizziness, Fainting spells, Swelling in the ankles, Chest pain, Prolonged hiccupping, Increased palpitations (irregular heartbeat) and Calf discomfort Follow Up Care When: IN 2 WEEKS Test Results: Test results from this visit will be discussed in further detail at your follow- up appointment, if applicable. Discharge Plan Admission Admit Date/Time: 04/15/24 13:38 Primary Reason for Your Visit: Influenza A with secondary bacterial pneumonia Attending Provider: Wade Beauchamp Primary Care Provider: Care Physician,Marce Primary Consulting Providers: Caitlin Villanueva Instructions Additional Instructions / Restrictions: Advised follow-up with PCP in 1 to 2 weeks. Advised quitting smoking. Patient declined for nicotine patch but eager to quit smoking. Discharge Orders/Prescriptions Prescriptions: New dextromethorphan-guaifenesin 60-1,200 mg tablet extended release 12 hr 1 tab PO BID 7 Days Qty: 14 0RF oseltamivir 75 mg Capsule 75 mg PO BID Qty: 9 0RF levofloxacin 500 mg tablet 500 mg PO DAILY 5 Days Qty: 5 0RF No Action fluoxetine 20 mg capsule 40 mg PO QHS Referrals / Follow Up: Care Physician,Marce Primary [Primary Care Provider] - Disposition Disposition (needs filled in before D/C Order can be placed): Home, Self Care
[2024-04-16] MEDS: Oseltamivir Phosphate 75 MG Capsule PO ×2 (12:27→21:56)
--- NOTE | 2024-04-16 14:59 | PCM.DC.SUM ---
Providers Date of Admission: 04/15/24 Date of Discharge: 04/16/24 Primary Care Physician: No Primary Care Phys Reason For Visit: PNA/INFLUENZA A Diagnosis Discharge Diagnosis (1) Acute hypotension: Status: Acute Code(s): I95.9 - Hypotension, unspecified (2) Acute dehydration: Status: Acute Code(s): E86.0 - Dehydration (3) Pneumonia: Status: Acute Code(s): J18.9 - Pneumonia, unspecified organism (4) Influenza A: Status: Acute Code(s): J10.1 - Influenza due to other identified influenza virus with other respiratory manifestations (5) Lactic acidosis: Status: Acute Code(s): E87.20 - Acidosis, unspecified Plan 33-year-old male was admitted with low-grade fever, 99.7, 99.8 in triage for 4 to 5 days also and loose stool on Thursday is resolved with no abdominal pain, dysuria. Mild nausea but no vomiting. Patient has productive cough, body aches malaise and generalized fatigue. 1. Influenza A complicated with bilateral superimposed bacterial pneumonia: Influenza A with superimposed bacterial pneumonia -Chest x-ray was suggestive of pneumonia and CT confirmed bibasilar pneumonia with infiltrates noted -Check sputum culture -Check strep pneumo and Legionella antigens -Continue antibiotics but will utilize Levaquin for easy transition to orals at discharge--> day 1 of 7 for antibiotics today -DuoNebs as scheduled next-as needed albuterol -Mucinex 1200 p.o. twice daily -Patient is out of the window for Tamiflu as he has had symptoms now for 4 days -As needed acetaminophen and ibuprofen Lactic acid -Secondary to dehydration and the above -Resolved with IV fluids on recheck in the emergency department Hypotension/tachycardia secondary to dehydration -Is improving with hydration -Will continue IV fluids at 150 cc/h for 2 more liters -Monitor clinically Depression -Continue home paroxetine Tobacco abuse -Recommend cessation -Nicotine gum available next-patient denied need for patch DVT prophylaxis -Lovenox 40 daily CODE STATUS -Full code Medications at Discharge Home Medications fluoxetine 20 mg capsule 40 mg PO QHS 01/05/23 dextromethorphan-guaifenesin ER 60 mg-1,200 mg tab,extend release,12hr 1 tab PO BID 7 days #14 tabs 04/16/24 levofloxacin 500 mg tablet 500 mg PO DAILY 5 days #5 tabs 04/16/24 oseltamivir 75 mg capsule 75 mg PO BID #9 caps 04/16/24 Weight / BMI Weight Weight: 198 lb 12.8 oz Body Mass Index (BMI) 27.7 ABG / Lab / Microbiology Data 04/16/24 05:22 04/16/24 05:22 Laboratory: Laboratory Results - last 24 hr 04/16/24 05:22: WBC 6.9, RBC 4.30 L, Hgb 12.5 L, Hct 37.6 L, MCV 87.4, MCH 29.1, MCHC 33.2, RDW Std Deviation 42.9, RDW Coeff of Lynda 13.4, Plt Count 179, MPV 9.1, Immature Gran % (Auto) 0.100, Neut % (Auto) 65.1, Lymph % (Auto) 25.8, [place] % (Auto) 8.5, Eos % (Auto) 0.1, Baso % (Auto) 0.4, Absolute Neuts (auto) 4.5, Absolute Lymphs (auto) 1.79, Nucleated RBC % 0, Sodium 141, Potassium 3.3 L, Chloride 112 H, Carbon Dioxide 23.0, Anion Gap 6, BUN 8, Creatinine 0.78, Estim Creat Clear Calc 143.47, Est GFR (MDRD) Af Amer 146, Est GFR (MDRD) Non-Af 121, BUN/Creatinine Ratio 10.2, Glucose 115 H, Calcium 8.0 L, Phosphorus 3.2, Magnesium 2.2 Microbiology: Microbiology 04/16/24 04:00 Sputum, Expectorated/Coughed Gram Stain - Final 04/15/24 10:05 Urine, Clean Catch Legionella Antigen - Final 04/15/24 10:05 Urine, Clean Catch Streptococcus pneumoniae Antigen (M - Final 04/15/24 08:15 Mucosa - Nose SARS-CoV-2, Influenza & RSV (PCR) - Final Influenzae A D/C Instructions Discharge Diet: No restrictions Weight Bearing Status: Weight bearing as tolerated Call your doctor if you observe: Fever of 101 or Higher, Coldness, Increased Pain, Numbness or Tingling, Change in Color, Inability to urinate, Inability to have a bowel movement, Shortness of breath, Dizziness, Fainting spells, Swelling in the ankles, Chest pain, Prolonged hiccupping, Increased palpitations (irregular heartbeat) and Calf discomfort DC O2, CPAP, BIPAP Needs RN Home O2 Qualification: Home O2 Qualification: Is the patient on home oxygen No 04/16/24 14:29 Home O2 Qualification: AT REST 1- Pulse Ox at rest 98 04/16/24 14:29 Home O2 Qualification: WITH AMBULATION 1- Pulse Ox with ambulation 94 04/16/24 14:29 1- Oxygen Flow Rate with 0 04/16/24 14:29 ambulation Home O2 Discharge instructions: No When: IN 2 WEEKS Meaningful Use Info Ischemic Stroke Statin Dosing Therapy Reference: STATIN DOSE THERAPY REFERENCE: * Patients > 75 years receive moderate or high dose statin therapy. * Patients 75 years or YOUNGER should receive HIGH intensity statin dose unless contraindicated. You will be required to document reason for non-treatment if statin daily dose does not meet guidelines. HIGH DOSE STATIN THERAPY DAILY Atorvastatin > than or = to 40 mg Rosuvastatin > than or = to 20 mg Amlodipine + Atorvastatin > than or = to 2.5/40 mg Ezetimibe + Simvastatin 10/80 mg Simvastatin 80mg Discharge Plan Admission Admit Date/Time: 04/15/24 13:38 Primary Reason for Your Visit: Influenza A with secondary bacterial pneumonia Attending Provider: Wdae Beauchamp Primary Care Provider: Care Physician,Marce Primary Consulting Providers: Caitlin Villanueva Instructions Additional Instructions / Restrictions: Advised follow-up with PCP in 1 to 2 weeks. Advised quitting smoking. Patient declined for nicotine patch but eager to quit smoking. Discharge Orders/Prescriptions Prescriptions: New dextromethorphan-guaifenesin 60-1,200 mg tablet extended release 12 hr 1 tab PO BID 7 Days Qty: 14 0RF oseltamivir 75 mg Capsule 75 mg PO BID Qty: 9 0RF levofloxacin 500 mg tablet 500 mg PO DAILY 5 Days Qty: 5 0RF No Action fluoxetine 20 mg capsule 40 mg PO QHS Referrals / Follow Up: Care Physician,Marce Primary [Primary Care Provider] - Disposition Disposition (needs filled in before D/C Order can be placed): Home, Self Care
--- NOTE | 2024-04-16 15:05 | PCM.PN.HOSP ---
Reason for Visit Reason for Visit: Diagnoses Dehydration (04/15/24) Acidosis, unspecified (04/15/24) Hypotension, unspecified (04/15/24) Influenza due to other identified influenza virus with other respiratory manifestations (04/15/24) Pneumonia, unspecified organism (04/15/24) Objective Data Objective Data Vital Signs: Vital Signs Temp Pulse Resp BP Pulse Ox O2 Del Method O2 Flow Rate 97.5 F L 96 18 101/65 94 Room Air 2 04/16/24 03:53 04/16/24 07:42 04/16/24 07:42 04/16/24 03:53 04/16/24 07:42 04/16/24 07:42 04/16/24 00:15 Oxygen Flow Rate (L/min) 2 Oxygen Delivery Method Room Air Weight: 198 lb 12.8 oz Body Mass Index (BMI) 27.7 Intake & Output: Intake and Output for Last 24 Hours 04/14/24 04/15/24 04/16/24 23:59 23:59 23:59 Intake Total 3107.5 / 3107.5 1000 / 1000 Output Total 0 / 0 Balance 3107.5 / 3107.5 1000 / 1000 Lab / Micro Data 04/16/24 05:22 04/16/24 05:22 Labs: Laboratory Results - last 24 hr 04/15/24 08:15: WBC 7.9, RBC 4.39 L, Hgb 13.0, Hct 38.5 L, MCV 87.7, MCH 29.6, MCHC 33.8, RDW Std Deviation 42.1, RDW Coeff of Lynda 13.1, Plt Count 198, MPV 8.8, Immature Gran % (Auto) 0.500, Neut % (Auto) 81.7 H, Lymph % (Auto) 8.4 L, [place] % (Auto) 7.0, Eos % (Auto) 2.0, Baso % (Auto) 0.4, Absolute Neuts (auto) 6.4, Absolute Lymphs (auto) 0.66 L, Nucleated RBC % 0, Sodium 137, Potassium 3.7, Chloride 105, Carbon Dioxide 26.0, Anion Gap 6, BUN 10, Creatinine 1.07, Estim Creat Clear Calc 104.58, Est GFR (MDRD) Af Amer 102, Est GFR (MDRD) Non-Af 84, BUN/Creatinine Ratio 9.3 L, Glucose 102, Calcium 8.6, Total Bilirubin 0.20, AST 39 H, ALT 45, Alkaline Phosphatase 82, Total Protein 6.5, Albumin 3.4, Globulin 3.1, Albumin/Globulin Ratio 1.1 04/15/24 08:36: Lactic Acid 2.2 H* 04/15/24 10:05: Urine Color Yellow, Urine Clarity Clear, Urine pH 8.0, Ur Specific [place] 1.010, Urine Protein 15 H, Urine Glucose (UA) Normal, Urine Ketones Negative, Urine Occult Blood Negative, Urine Nitrite Negative, Urine Bilirubin Negative, Urine Urobilinogen Normal, Ur Leukocyte Esterase 25 H, Urine RBC 0-5 SEEN, Urine WBC 0-5 SEEN, Ur Squamous Epith Cells 0 SEEN, Urine Bacteria 0 SEEN, Urine Mucus 0 SEEN 04/15/24 12:50: Lactic Acid 1.5 04/16/24 05:22: WBC 6.9, RBC 4.30 L, Hgb 12.5 L, Hct 37.6 L, MCV 87.4, MCH 29.1, MCHC 33.2, RDW Std Deviation 42.9, RDW Coeff of Lynda 13.4, Plt Count 179, MPV 9.1, Immature Gran % (Auto) 0.100, Neut % (Auto) 65.1, Lymph % (Auto) 25.8, [place] % (Auto) 8.5, Eos % (Auto) 0.1, Baso % (Auto) 0.4, Absolute Neuts (auto) 4.5, Absolute Lymphs (auto) 1.79, Nucleated RBC % 0, Sodium 141, Potassium 3.3 L, Chloride 112 H, Carbon Dioxide 23.0, Anion Gap 6, BUN 8, Creatinine 0.78, Estim Creat Clear Calc 143.47, Est GFR (MDRD) Af Amer 146, Est GFR (MDRD) Non-Af 121, BUN/Creatinine Ratio 10.2, Glucose 115 H, Calcium 8.0 L, Phosphorus 3.2, Magnesium 2.2 Micro: Microbiology 04/15/24 10:05 Urine, Clean Catch Legionella Antigen - Final 04/15/24 10:05 Urine, Clean Catch Streptococcus pneumoniae Antigen (M - Final 04/15/24 08:15 Mucosa - Nose SARS-CoV-2, Influenza & RSV (PCR) - Final Influenzae A Radiography Diagnostic Testing: Radiology Impression Chest X-Ray 04/15/24 08:20 IMPRESSION: Findings suggestive of patchy bibasilar infiltrates. Electronically Signed: Roshan Portillo MD at 8:43 EST , Chest CT 04/15/24 11:20 IMPRESSION: Patchy bibasilar infiltrates worse on the left side. Electronically Signed: Roshan Portillo MD at 12:14 EST , Physical Exam Narrative Seen and examined. Patient looks mild short of breath, fatigue, generalized muscle ache. Physical exam General: Alert, Oriented x3, Cooperative HEENT: Atraumatic, PERRLA, EOMI, Normocephalic Oral: Oral mucosa dry. No Gingival or Mucosal Lesions/ Ulcerations Neck: Supple, No JVD, Negative Carotid Bruits Chest wall/Lungs: Air entry diminished in bilateral lung bases. Mild bibasilar coarse crepitation Cardiovascular: Regular rate, Regular Rhythm, Normal S1, Normal S2, No M/G/R Abdomen: Bowel Sounds Present, Soft, Non Tender, Non-Distended : No dysuria. No renal angle tenderness. No suprapubic tenderness. Extremities: No edema, Capillary Refill Less than 3 Seconds Skin: No rashes, No breakdown Musculoskeletal: No Tenderness to Palpation of Joints or Extremities Neurological: Cranial nerves II-XII grossly intact, DTR 2+/4. No acute focal neurological deficit. Psych/Mental Status: Flat affect. Assessment & Plan Assessment/Plan (1) Acute hypotension: (2) Acute dehydration: (3) Pneumonia: (4) Influenza A: (5) Lactic acidosis: PLAN: Plan 33-year-old male was admitted with low-grade fever, 99.7, 99.8 in triage for 4 to 5 days also and loose stool on Thursday is resolved with no abdominal pain, dysuria. Mild nausea but no vomiting. Patient has productive cough, body aches malaise and generalized fatigue. Influenza A complicated with bilateral superimposed bacterial pneumonia: [facility] Patient had fever 102.2 Fahrenheit and 102.8 Fahrenheit last night therefore I convinced him to stay. Chest x-ray and CT shows bibasilar pneumonia with infiltrates. Patient has history of his smoking a pack per day since age of [age]. The patient has viral symptoms generalized fatigue body aches and pain and looks mild short of breath although he does not complain therefore started on Tamiflu given post day 3 to improve. Shorten the duration of illness. Patient on IV Levaquin. Urinary antigens are negative. DuoNeb as needed. On Mucinex DM Tachycardia, hypotension, mild lactic acidosis due to dehydration and viral illness. Resolved with IV fluid. Repeat lactic acid normal. Patient blood pressure and heart rate improved after admission. Sepsis ruled out. Depression -Continue home paroxetine Tobacco abuse -Recommend cessation -Nicotine gum available next-patient refused for nicotine patch. DVT prophylaxis -Lovenox 40 daily CODE STATUS -Full code Patient asked for discharge but continues to stay. If patient wants to go home he he will have to sign AMA. Charges/Coding Visit Charges Inpatient E&M: 54515 Subs Hosp L2
[2024-04-16] MEDS: Fluoxetine HCl 40 MG CAPSULE PO (21:56)
[2024-04-17 04:20] VITALS: BP 106/71; PULSE 95; RESP 20; TEMP 37.1; O2SAT 94
[2024-04-17 04:25] VITALS: O2SAT 93; O2SAT 96
[2024-04-17 07:36] VITALS: PULSE 69; RESP 18; O2SAT 93
[2024-04-17] MEDS: Ipratropium/Albuterol Sulfate 3 ML AMPUL.NEB INHALATION (07:37)
[2024-04-17 10:00] VITALS: BP 106/71; PULSE 93; RESP 16; TEMP 36.7; O2SAT 96
--- NOTE | 2024-04-17 10:47 | PCM.DC ---
Discharge Instructions Diet Discharge Diet: No restrictions DC O2, CPAP, BIPAP needs RN Home O2 Qualification: Home O2 Qualification: Is the patient on home oxygen No 04/17/24 04:25 Home O2 Qualification: AT REST 1- Pulse Ox at rest 96 04/17/24 04:25 Home O2 Qualification: WITH AMBULATION 1- Pulse Ox with ambulation 93 04/17/24 04:25 1- Oxygen Flow Rate with 0 04/17/24 04:25 ambulation Home O2 Discharge instructions: No Dressing / Incision Discharge Activity: Return to Normal Activity Weight Bearing Status: Weight bearing as tolerated Dressing / Incision Call your doctor if you observe: Fever of 101 or Higher, Coldness, Increased Pain, Numbness or Tingling, Change in Color, Inability to urinate, Inability to have a bowel movement, Shortness of breath, Dizziness, Fainting spells, Swelling in the ankles, Chest pain, Prolonged hiccupping, Increased palpitations (irregular heartbeat) and Calf discomfort Follow Up Care When: IN 2 WEEKS Test Results: Test results from this visit will be discussed in further detail at your follow-up appointment, if applicable. Discharge Plan Admission Admit Date/Time: 04/16/24 15:28 Primary Reason for Your Visit: Influenza A with secondary bacterial pneumonia Attending Provider: Wade Beauchamp Primary Care Provider: Concepcion Lerner,No Primary Consulting Providers: Caitlin Villanueva Instructions Additional Instructions / Restrictions: Advised follow-up with PCP in 1 to 2 weeks. Advised quitting smoking. Patient declined for nicotine patch but eager to quit smoking. Discharge Orders/Prescriptions Prescriptions: New dextromethorphan-guaifenesin 60-1,200 mg tablet extended release 12 hr 1 tab PO BID 7 Days Qty: 14 0RF levofloxacin 500 mg tablet 500 mg PO DAILY 5 Days Qty: 5 0RF oseltamivir [Tamiflu] 75 mg capsule 75 mg PO BID 4 Days Qty: 8 0RF Held fluoxetine 20 mg capsule 40 mg PO QHS Hold Instructions: Hold while taking levofloxacin Referrals / Follow Up: Care Physician,No Primary [Primary Care Provider] - Within 2 Weeks Disposition Disposition (needs filled in before D/C Order can be placed): Home, Self Care
--- NOTE | 2024-04-17 10:54 | PCM.DC.SUM ---
Providers Date of Admission: 04/16/24 Date of Discharge: 04/17/24 Primary Care Physician: No Primary Care Phys Reason For Visit: PNA/INFLUENZA A Diagnosis Discharge Diagnosis (1) Acute hypotension: Status: Acute Code(s): I95.9 - Hypotension, unspecified (2) Acute dehydration: Status: Acute Code(s): E86.0 - Dehydration (3) Pneumonia: Status: Acute Code(s): J18.9 - Pneumonia, unspecified organism (4) Influenza A: Status: Acute Code(s): J10.1 - Influenza due to other identified influenza virus with other respiratory manifestations (5) Lactic acidosis: Status: Acute Code(s): E87.20 - Acidosis, unspecified Plan 33-year-old male was admitted with low-grade fever, 99.7, 99.8 in triage for 4 to 5 days also and loose stool on Thursday is resolved with no abdominal pain, dysuria. Mild nausea but no vomiting. Patient has productive cough, body aches malaise and generalized fatigue. Influenza A complicated with bilateral superimposed bacterial pneumonia: Patient is being admitted on MedSurg floor. Patient had fever 102.2 Fahrenheit and 102.8 Fahrenheit last night therefore I convinced him to stay. Chest x-ray and CT shows bibasilar pneumonia with infiltrates. Patient has history of his smoking a pack per day since age of [age]. The patient has viral symptoms generalized fatigue body aches and pain and looks mild short of breath although he does not complain therefore started on Tamiflu given post day 3 to improve. Shorten the duration of illness. Patient on IV Levaquin. Urinary antigens are negative. DuoNeb as needed. On Mucinex DM 04/17: Patient discharged on 4 more days of Tamiflu. Prescription also given for Levaquin and Tamiflu. He does not want prescription for nicotine patch. Tachycardia, hypotension, mild lactic acidosis due to dehydration and viral illness. Resolved with IV fluid. Repeat lactic acid normal. Patient blood pressure and heart rate improved after admission. Sepsis ruled out. 04/17: Tachycardia hypotension fever resolved. No fever for about 36 hours. Depression -Continue home paroxetine Tobacco abuse -Recommend cessation -Nicotine gum available next-patient refused for nicotine patch. DVT prophylaxis -Lovenox 40 daily CODE STATUS -Full code Discharge medication reconciliation done. Discharge follow-up instructions completed. Discharge process discussed with the patient and all questions were answered to patient's satisfaction. Follow with PCP in 1 to 2 weeks Total time spent, exact 35 minutes on discharge meds reconciliation, examination, coordination of care with nurses and ancillary staff, review of imaging and blood test and discussion with the patient on follow-up instructions. Medications at Discharge Home Medications fluoxetine 20 mg capsule 40 mg PO QHS 01/05/23 dextromethorphan-guaifenesin ER 60 mg-1,200 mg tab,extend release,12hr 1 tab PO BID 7 days #14 tabs 04/16/24 levofloxacin 500 mg tablet 500 mg PO DAILY 5 days #5 tabs 04/16/24 oseltamivir 75 mg capsule (Tamiflu) 75 mg PO BID 4 days #8 caps 04/17/24 Physical Exam Narrative Seen and examined. No fever. Shortness of breath has resolved. Patient wants to go home. It seems patient's son who is baby also got sick. Physical exam General: Alert, Oriented x3, Cooperative HEENT: Atraumatic, PERRLA, EOMI, Normocephalic Oral: Oral mucosa dry. No Gingival or Mucosal Lesions/ Ulcerations Neck: Supple, No JVD, Negative Carotid Bruits Chest wall/Lungs: Air entry diminished in bilateral lung bases. Lungs clear. Cardiovascular: Regular rate, Regular Rhythm, Normal S1, Normal S2, No M/G/R Abdomen: Bowel Sounds Present, Soft, Non Tender, Non-Distended : No dysuria. No renal angle tenderness. No suprapubic tenderness. Extremities: No edema, Capillary Refill Less than 3 Seconds Skin: No rashes, No breakdown Musculoskeletal: No Tenderness to Palpation of Joints or Extremities Neurological: Cranial nerves II-XII grossly intact, DTR 2+/4. No acute focal neurological deficit. Psych/Mental Status: Flat affect. Weight / BMI Weight Weight: 198 lb 12.8 oz Body Mass Index (BMI) 27.7 ABG / Lab / Microbiology Data 04/16/24 05:22 04/16/24 05:22 Microbiology: Microbiology 04/15/24 13:22 Blood Culture (Wb) - Right Forearm Blood Culture - Preliminary No growth in 48 hours. 04/15/24 13:22 Blood Culture (Wb) - Anticubital Left Blood Culture - Preliminary No growth in 48 hours. 04/16/24 04:00 Sputum, Expectorated/Coughed Gram Stain - Final 04/16/24 04:00 Sputum, Expectorated/Coughed Respiratory Culture - Preliminary Beta hemolytic organism 04/15/24 10:05 Urine, Clean Catch Legionella Antigen - Final 04/15/24 10:05 Urine, Clean Catch Streptococcus pneumoniae Antigen (M - Final 04/15/24 08:15 Mucosa - Nose SARS-CoV-2, Influenza & RSV (PCR) - Final Influenzae A D/C Instructions Discharge Diet: No restrictions Weight Bearing Status: Weight bearing as tolerated Call your doctor if you observe: Fever of 101 or Higher, Coldness, Increased Pain, Numbness or Tingling, Change in Color, Inability to urinate, Inability to have a bowel movement, Shortness of breath, Dizziness, Fainting spells, Swelling in the ankles, Chest pain, Prolonged hiccupping, Increased palpitations (irregular heartbeat) and Calf discomfort DC O2, CPAP, BIPAP Needs RN Home O2 Qualification: Home O2 Qualification: Is the patient on home oxygen No 04/17/24 04:25 Home O2 Qualification: AT REST 1- Pulse Ox at rest 96 04/17/24 04:25 Home O2 Qualification: WITH AMBULATION 1- Pulse Ox with ambulation 93 04/17/24 04:25 1- Oxygen Flow Rate with 0 04/17/24 04:25 ambulation Home O2 Discharge instructions: No When: IN 2 WEEKS Meaningful Use Info Meaningful Use Meaningful Use Diagnoses (Choose all that apply): None applicable Ischemic Stroke Statin Dosing Therapy Reference: STATIN DOSE THERAPY REFERENCE: * Patients > 75 years receive moderate or high dose statin therapy. * Patients 75 years or YOUNGER should receive HIGH intensity statin dose unless contraindicated. You will be required to document reason for non-treatment if statin daily dose does not meet guidelines. HIGH DOSE STATIN THERAPY DAILY Atorvastatin > than or = to 40 mg Rosuvastatin > than or = to 20 mg Amlodipine + Atorvastatin > than or = to 2.5/40 mg Ezetimibe + Simvastatin 10/80 mg Simvastatin 80mg Discharge Plan Admission Admit Date/Time: 04/16/24 15:28 Primary Reason for Your Visit: Influenza A with secondary bacterial pneumonia Attending Provider: Wade Beauchamp Primary Care Provider: Care Physician,No Primary Consulting Providers: Caitlin Villanueva Instructions Additional Instructions / Restrictions: Advised follow-up with PCP in 1 to 2 weeks. Advised quitting smoking. Patient declined for nicotine patch but eager to quit smoking. Discharge Orders/Prescriptions Prescriptions: New dextromethorphan-guaifenesin 60-1,200 mg tablet extended release 12 hr 1 tab PO BID 7 Days Qty: 14 0RF levofloxacin 500 mg tablet 500 mg PO DAILY 5 Days Qty: 5 0RF oseltamivir [Tamiflu] 75 mg capsule 75 mg PO BID 4 Days Qty: 8 0RF Held fluoxetine 20 mg capsule 40 mg PO QHS Hold Instructions: Hold while taking levofloxacin Referrals / Follow Up: Care Physician,No Primary [Primary Care Provider] - Within 2 Weeks Disposition Disposition (needs filled in before D/C Order can be placed): Home, Self Care Charges/Coding Visit Charges Inpatient E&M: 84575 Disch Hosp >30min
[2024-04-17] MEDS: levoFLOXacin 500 MG Tablet PO (11:06)
[2024-04-17] MEDS: Oseltamivir Phosphate 75 MG Capsule PO (11:07)
[2024-04-17] MEDS: guaiFENesin/D-Methorphan TAB.SR.12H 2 TABLET PO (11:07)
== END 2024-04-17 11:46 | disposition home or self-care (01) | DRG 139 ==
LOC: ED 13:09 → MS3 13:59
PROVIDERS: Admitting Provider Internal Medicine; Emergency Provider Emergency Medicine; Visit Provider Internal Medicine
DX: J10.08 Influenza due to other identified influenza virus with other specified pneumonia (principal); E87.20 Acidosis, unspecified; F32.A Depression, unspecified; J15.9 Unspecified bacterial pneumonia; I95.9 Hypotension, unspecified; E86.0 Dehydration; J10.1 Influenza due to other identified influenza virus with other respiratory manifestations; F17.210 Nicotine dependence, cigarettes, uncomplicated; Z79.899 Other long term (current) drug therapy; Z11.52 Encounter for screening for COVID-19
CPT/HCPCS: 36415; 71046; 71250; 80048; 80053; 81001; 83605; 83735; 84100; 85025; 87040; 87070; 87077; 87205; 87449; 87631; 94640; 94668; 99285; A4216